=== PATIENT | male | born 1990 | race Caucasian/White ===

== ENCOUNTER 2017-06-19 16:39 | Emergency (ER) | payer SELFPAY ==
[~2017-06-19] VITALS: Ht 175.3 cm; Wt 72.0 kg
[2017-06-19 17:03] VITALS: BP 143/68; PULSE 99; RESP 16; TEMP 98; O2SAT 100
--- NOTE | 2017-06-19 17:24 | PD ---
HPI Chief Complaint: Eye Problems/Injury Time Seen by Provider: 17:08 Travel History International Travel<30 days: No Contact w/Intl Traveler<30days: No Traveled to known affect area: No History of Present Illness HPI 27-year-old male came to the emergency room with history left eye injury yesterday while he was working and a wire came and struck his eye. Patient did not make much of it then. This morning he woke up and he thought his vision was slightly blurry from that eye. He checked in the mirror and thought he could see a foreign body on the top of his cornea. Patient came to the emergency room to be checked out. He does not wear corrective lenses or contact lenses. No other injuries. Upon asking patient says he was wearing safety glasses. [facility] Past Medical History Narrative Medical List of his past medical, surgical, social and family history is reviewed from the nursing note. Social History Tobacco Use: Yes Allergies-Medications (Allergen,Severity, Reaction): Coded Allergies: No Known Allergies (Unverified , 06/19/17) Comments No known drug allergies. Narrative Medication Awaiting for the nurse to do the med reconciliation. Review of Systems Except as stated in HPI: all other systems reviewed are Neg Eyes: Positive: Visual changes Physical Exam Narrative GENERAL: Awake, alert, no obvious distress SKIN: Focused skin assessment warm/dry. HEAD: Atraumatic. Normocephalic. EYES: Pupils equal and round. No scleral icterus. No injection or drainage. Bilateral lower eyelid ecchymosis but patient says that is from a previous injury. Left cornea is clear and no obvious foreign body visible. Pupil is round and reactive to light. ENT: No nasal bleeding or discharge. Mucous membranes pink and moist. NECK: Trachea midline. No JVD. CARDIOVASCULAR: Regular rate and rhythm. No murmur appreciated. RESPIRATORY: No accessory muscle use. Clear to auscultation. Breath sounds equal bilaterally. GASTROINTESTINAL: Abdomen soft, non-tender, nondistended. Hepatic and splenic margins not palpable. MUSCULOSKELETAL: No obvious deformities. No clubbing. No cyanosis. No edema. NEUROLOGICAL: Awake and alert. No obvious cranial nerve deficits. Motor grossly within normal limits. Normal speech. PSYCHIATRIC: Appropriate mood and affect; insight and judgment normal. Data Data Last Documented VS Vital Signs Date Time Temp Pulse Resp B/P (MAP) Pulse Ox O2 Delivery O2 Flow Rate FiO2 06/19/17 17:03 98.0 99 16 143/68 (93) 100 Orders Orders Tetracaine 0.5% Opht Soln (Pontocaine 0. (06/19/17 17:30) ^ Other Nursing Orders (06/19/17 18:00) Ed Discharge Order (06/19/17 18:29) MDM Medical Decision Making Medical Screen Exam Complete: Yes Emergency Medical Condition: Yes Medical Record Reviewed: Yes Differential Diagnosis Corneal abrasion, foreign body in the eye Narrative Course 6:10 PM patient did not seem to have any obvious foreign body on my eye exam. I did a fluorescein test which was negative for any corneal abrasion. Please refer to my procedure note. I have asked the nurse to do a visual acuity and waiting for the result. Patient will be able to go home. Based on the visual acuity I will give him a referral to the 7th grade social studies teacher. 6:29 PM his visual acuity was 20/15 both eyes. Patient will be discharged home. Procedures Procedure Narrative Fluorescein eye test: I put 2 drops of tetracaine 0.5% into the left eye. After that the fluorescein strip was held under the lower eyelid. After 10 seconds once the floor seen started to see about and cover the entire eye the strip was taken out and Paul lamp was used to look for abrasion. There was no abrasion noticed on the cornea. Bartolome test was negative. Patient tolerated the procedure well. EKG Prior to Arrival: No Diagnosis Primary Impression: Eye injury Qualified Codes: S05.92XA - Unspecified injury of left eye and orbit, initial encounter Additional Impression: Blurred vision, left eye Referrals: Kym Aquino MD 1 day Additional Instructions: Please call the 7th grade social studies teacher office tomorrow morning after 8 AM was name and number been provided to you on the discharge instruction. He will be given an appointment. Please keep the appointment and follow-up with the 7th grade social studies teacher for any further exam. Med/Other Pt SpecificInfo: No Meds Exist/No RX given Disposition: 01 DISCHARGE HOME Condition: Stable Brie Price MD Jun 19, 2017 17:24
[2017-06-19] MEDS ORDERED: TETRACAINE 0.5% OPTH SOLN 2 ML BTL LEFT EYE ONE (17:30)
== END 2017-06-19 19:03 | disposition home or self-care (01) ==
LOC: NEPD 16:39
DX: S05.92XA Unspecified injury of left eye and orbit, initial encounter (principal); H53.8 Other visual disturbances; W20.8XXA Other cause of strike by thrown, projected or falling object, initial encounter; Z72.0 Tobacco use
CPT/HCPCS: 99283